=== PATIENT | male | born 1960 | race Caucasian/White ===

== ENCOUNTER 2022-02-24 21:28 | Inpatient (IN) | payer SELFPAY ==
[2022-02-24 22:15] LABS: #Eosinphils 0.1 thou/uL (0.0-0.7); #Lymphocytes 0.6 thou/uL (1.20-3.40); #Monocytes 0.6 thou/uL (0.11-0.59); #Neutrophils 6.3 thou/uL (1.40-6.50); %Basophils 0.6 % (0.0-1.0); %Eosinophils 0.7 % (0.0-10.0); %Lymphocytes 7.9 % (21.0-51.0); %Monocytes 7.3 % (0.0-10.0); %Neutrophils 83.5 % (42.0-75.0); Hemoglobin 13.3 g/dL (14.0-18.0); Mean Corpuscular HGB CONC 31.8 g/dL (32.0-36.0); Mean Corpuscular Hemoglobin 29.6 pg (27.0-31.0); Mean Corpuscular Volume 92.9 fL (78.0-98.0); Mean Platelet Volume 9.2 fL (7.4-10.4); Platelet Count 194 thou/uL (130-400); RBC Distribution Width 13.2 % (11.5-14.5); Red Blood Cell (RBC) Count 4.49 mill/uL (4.70-6.10); White Blood Cell (WBC) Count 7.5 thou/uL (4.8-10.8)
[2022-02-24 22:35] LABS: ALT (SGPT) 50 U/L (8-55); AST (SGOT) 47 U/L (5-34); Albumin 3.7 g/dL (3.4-4.8); Alkaline Phosphatase 127 U/L (40-110); Anion Gap 15 mmol/L (10-20); BUN (Urea Nitrogen) 28 mg/dL (8.4-25.7); Calc. Creatinine Clearance 0 mL/min (70-130); Calcium 9.1 mg/dL (7.8-10.44); Carbon Dioxide 24 mmol/L (23-31); Chloride 106 mmol/L (98-107); Estimated GFR 58; Globulin 2.9 g/dL (2.4-3.5); Glucose 117 mg/dL (80-115); Potassium 4.5 mmol/L (3.5-5.1); Protein, Total 6.6 g/dL (5.8-8.1); Sodium 140 mmol/L (136-145)
[2022-02-24 22:58] LABS: CKMB 3.2 ng/mL (0-6.6)
[2022-02-24] MEDS ORDERED: Lorazepam 1 MG TAB ONE (23:48)
[2022-02-24] MEDS ORDERED: Nitroglycerin 2% Ointment 1 INCH/1 GM Packet ONE (23:48)
[2022-02-24] MEDS ORDERED: Furosemide 40 MG/4 ML VIAL ONE (23:48)
[2022-02-25] MEDS ORDERED: Ondansetron PF 4 MG/2 ML Vial IVP PRN (03:24)
[2022-02-25] MEDS ORDERED: Acetaminophen 325 MG TAB PO PRN (03:24)
[2022-02-25 04:21] VITALS: BMI 29.9
[2022-02-25 04:44] LABS: #Basophils 0.1 thou/uL (0.0-0.2); #Eosinphils 0.1 thou/uL (0.0-0.7); #Lymphocytes 0.9 thou/uL (1.20-3.40); #Monocytes 0.7 thou/uL (0.11-0.59); #Neutrophils 5.7 thou/uL (1.40-6.50); %Eosinophils 1.6 % (0.0-10.0); %Lymphocytes 12.2 % (21.0-51.0); %Monocytes 9.4 % (0.0-10.0); %Neutrophils 75.8 % (42.0-75.0); Hemoglobin 13.2 g/dL (14.0-18.0); Mean Corpuscular HGB CONC 31.2 g/dL (32.0-36.0); Mean Corpuscular Volume 92.9 fL (78.0-98.0); Mean Platelet Volume 9.4 fL (7.4-10.4); Platelet Count 222 thou/uL (130-400); RBC Distribution Width 13.1 % (11.5-14.5); Red Blood Cell (RBC) Count 4.54 mill/uL (4.70-6.10); White Blood Cell (WBC) Count 7.5 thou/uL (4.8-10.8)
[2022-02-25 05:01] LABS: Anion Gap 17 mmol/L (10-20); BUN (Urea Nitrogen) 27 mg/dL (8.4-25.7); Calc. Creatinine Clearance 78 mL/min (70-130); Calcium 9.3 mg/dL (7.8-10.44); Carbon Dioxide 24 mmol/L (23-31); Chloride 104 mmol/L (98-107); Cholesterol 139 mg/dl (< 200 Desired); Estimated GFR 61; Glucose 111 mg/dL (80-115); HDL Cholesterol 46 mg/dL (>60 Neg Risk); LDL Cholesterol, Calculated 81 mg/dL; Potassium 3.8 mmol/L (3.5-5.1); Sodium 141 mmol/L (136-145); Triglycerides 62 mg/dL (Less than 150)
[2022-02-25 05:16] LABS: Troponin I 0.074 ng/mL (< 0.028)
[2022-02-25 08:18] LABS: Troponin I 0.081 ng/mL (< 0.028)
[2022-02-25] MEDS ORDERED: Atenolol 25 MG TAB PO SCH (09:00)
[2022-02-25] MEDS ORDERED: Heparin 5,000 UNITS/ML VIAL SC SCH (09:00)
[2022-02-25] MEDS ORDERED: traMADol HCl 50 MG TAB PO SCH (09:30)
[2022-02-25] MEDS ORDERED: Iopamidol 370 76% 100 ML VIAL ONE (09:31)
[2022-02-25] MEDS ORDERED: Carvedilol 3.125 MG TAB PO SCH ×4 (09:52→17:00)
[2022-02-25] MEDS ORDERED: Spironolactone 25 MG TAB PO SCH ×2 (09:54→10:30)
[2022-02-25] MEDS ORDERED: Lidocaine 1% MPF 2 ML VIAL ONE ×2 (11:29)
[2022-02-25] MEDS ORDERED: Communication Order-Pharmacy FS SCH (11:30)
[2022-02-25] MEDS ORDERED: Midazolam HCl 2 mg/2 ml Vial ONE (12:11)
[2022-02-25] MEDS ORDERED: Fentanyl 100 MCG/2 ML VIAL ONE (12:11)
[2022-02-25] MEDS ORDERED: hydrALAZINE 20 MG/ML VIAL SLOW IVP SCH (16:30)
[2022-02-25] MEDS: Furosemide 40 MG/4 ML VIAL SLOW IVP SCH (17:00)
[2022-02-26 01:28] LABS: Troponin I 0.085 ng/mL (< 0.028)
[2022-02-26 04:30] LABS: #Eosinphils 0.2 thou/uL (0.0-0.7); #Lymphocytes 0.9 thou/uL (1.20-3.40); #Monocytes 0.5 thou/uL (0.11-0.59); #Neutrophils 4.7 thou/uL (1.40-6.50); %Basophils 0.7 % (0.0-1.0); %Eosinophils 2.7 % (0.0-10.0); %Lymphocytes 14.4 % (21.0-51.0); %Monocytes 8.2 % (0.0-10.0); %Neutrophils 73.9 % (42.0-75.0); Hemoglobin 13.2 g/dL (14.0-18.0); Mean Corpuscular HGB CONC 31.3 g/dL (32.0-36.0); Mean Corpuscular Hemoglobin 29.4 pg (27.0-31.0); Mean Corpuscular Volume 93.9 fL (78.0-98.0); Mean Platelet Volume 9.5 fL (7.4-10.4); Platelet Count 198 thou/uL (130-400); RBC Distribution Width 13.2 % (11.5-14.5); Red Blood Cell (RBC) Count 4.49 mill/uL (4.70-6.10); White Blood Cell (WBC) Count 6.3 thou/uL (4.8-10.8)
[2022-02-26 04:51] LABS: Anion Gap 18 mmol/L (10-20); BUN (Urea Nitrogen) 23 mg/dL (8.4-25.7); Calc. Creatinine Clearance 81 mL/min (70-130); Calcium 8.6 mg/dL (7.8-10.44); Carbon Dioxide 26 mmol/L (23-31); Chloride 103 mmol/L (98-107); Estimated GFR 64; Glucose 136 mg/dL (80-115); Potassium 3.5 mmol/L (3.5-5.1); Sodium 143 mmol/L (136-145)
[2022-02-26] MEDS: Furosemide 40 MG/4 ML VIAL SLOW IVP SCH ×2 (05:42→16:31)
[2022-02-26] MEDS ORDERED: Spironolactone 25 MG TAB PO SCH (08:00)
[2022-02-26] MEDS ORDERED: Amlodipine 5 MG TAB PO SCH (09:00)
[2022-02-26] MEDS: Carvedilol 3.125 MG TAB PO SCH ×2 (09:30→16:32)
[2022-02-26] MEDS: Aspirin 81 mg Enteric Coated Tablet PO SCH (09:31)
[2022-02-26] MEDS: Atorvastatin Calcium 20 MG TAB PO SCH (20:50)
[2022-02-27 04:58] LABS: #Basophils 0.1 thou/uL (0.0-0.2); #Eosinphils 0.3 thou/uL (0.0-0.7); #Monocytes 0.7 thou/uL (0.11-0.59); #Neutrophils 5.6 thou/uL (1.40-6.50); %Basophils 1.1 % (0.0-1.0); %Eosinophils 3.9 % (0.0-10.0); %Lymphocytes 12.8 % (21.0-51.0); %Monocytes 9.5 % (0.0-10.0); %Neutrophils 72.8 % (42.0-75.0); Hemoglobin 16.2 g/dL (14.0-18.0); Mean Corpuscular Hemoglobin 29.4 pg (27.0-31.0); Mean Platelet Volume 9.2 fL (7.4-10.4); Platelet Count 213 thou/uL (130-400); RBC Distribution Width 13.4 % (11.5-14.5); White Blood Cell (WBC) Count 7.7 thou/uL (4.8-10.8)
[2022-02-27 05:13] LABS: Anion Gap 16 mmol/L (10-20); BUN (Urea Nitrogen) 18 mg/dL (8.4-25.7); Calc. Creatinine Clearance 95 mL/min (70-130); Calcium 8.7 mg/dL (7.8-10.44); Carbon Dioxide 27 mmol/L (23-31); Chloride 101 mmol/L (98-107); Estimated GFR 84; Glucose 87 mg/dL (80-115); Potassium 3.5 mmol/L (3.5-5.1); Sodium 140 mmol/L (136-145)
[2022-02-27] MEDS: Furosemide 40 MG/4 ML VIAL SLOW IVP SCH ×2 (06:42→14:11)
[2022-02-27] MEDS ORDERED: Carvedilol 3.125 MG TAB PO SCH (06:57)
[2022-02-27] MEDS: Aspirin 81 mg Enteric Coated Tablet PO SCH (09:26)
[2022-02-27] MEDS: Carvedilol 6.25 MG TAB PO SCH ×2 (09:26→17:51)
[2022-02-27] MEDS: Spironolactone 25 MG TAB PO SCH (09:26)
[2022-02-27] MEDS: Sacubitril 49 MG/Valsartan 51 MG TABLET PO SCH ×2 (09:26→21:05)
[2022-02-27] MEDS: Atorvastatin Calcium 20 MG TAB PO SCH (21:05)
[2022-02-28] MEDS: Furosemide 40 MG/4 ML VIAL SLOW IVP SCH (06:00)
[2022-02-28] MEDS ORDERED: Carvedilol 25 MG TAB PO SCH (08:00)
[2022-02-28] MEDS: Sacubitril 49 MG/Valsartan 51 MG TABLET PO SCH (10:47)
[2022-02-28] MEDS: Aspirin 81 mg Enteric Coated Tablet PO SCH (10:47)
[2022-02-28] MEDS: Spironolactone 25 MG TAB PO SCH (10:49)
[2022-02-28] MEDS ORDERED: Furosemide 40 MG TAB PO SCH (11:00)
[2022-02-28 12:17] VITALS: BP 129/81; TEMP 97.7
== END 2022-02-28 14:00 | disposition home or self-care (01) | DRG 286 ==
LOC: ERS 21:28 → 2NO 02-25 00:38
PROVIDERS: ADMIT Hospitalist; ATTEND Hospitalist
PROC: B2111ZZ Fluoroscopy of Multiple Coronary Arteries using Low Osmolar Contrast (ICD-10-PCS; principal; 2022-02-25)
DX: I11.0 Hypertensive heart disease with heart failure (principal); I50.21 Acute systolic (congestive) heart failure; Z20.822 Contact with and (suspected) exposure to COVID-19; R33.9 Retention of urine, unspecified; I42.9 Cardiomyopathy, unspecified; I25.10 Atherosclerotic heart disease of native coronary artery without angina pectoris; I42.8 Other cardiomyopathies; I07.1 Rheumatic tricuspid insufficiency; Z87.891 Personal history of nicotine dependence
CPT/HCPCS: 36415; 71045; 80048; 80053; 80061; 82553; 83036; 83880; 84484; 85025; 93005; 93306; 93458; 96374; 99152; C1769; J0360; J1940; J2250; J3010; Q9967; U0003; U0005